=== PATIENT | male | born 1940 | race Caucasian/White ===

== ENCOUNTER 2021-03-11 14:42 | Inpatient (IN) ==
[2021-03-11] MEDS ORDERED: Isovue-370 500 ML BOTTLE IVP ONE (15:15)
[2021-03-11] MEDS ORDERED: Furosemide 40 MG/4 ML VIAL IVP ONE (15:25)
[2021-03-11 16:07] LABS: Basophils % 0.1 %; Hematocrit 35.2 % (37.5-50.1); Immature Granulocytes % 1.7 % (0-4); Lymphocytes # 0.8 K/mcL (0.6-4.6); Lymphocytes % 5.4 %; Mean Corpuscular HGB Conc 31.3 g/dL (31.6-35.5); Mean Corpuscular Hemoglobin 28.1 pg (28.0-33.3); Mean Platelet Volume 9.5 fL (9.4-12.4); Monocytes # 0.9 K/mcL (0.0-1.3); Neutrophils # 12.4 K/mcL (1.6-8.9); Platelet Count 248 K/mcL (140-400); Red Blood Count 3.91 M/mcL (4.19-5.50); Red Cell Distribution Width 15.2 % (11.5-14.5); Segmented Neutrophils % 86.8 %; White Blood Count 14.3 K/mcL (4.3-11.1)
[2021-03-11 16:25] LABS: Alanine Aminotransferase 23 Units/L (7-52); Albumin 3.8 g/dL (3.5-5.7); Albumin/Globulin Ratio 1.8 (1.1-2.2); Alkaline Phosphatase 59 Units/L (34-104); Aspartate Amino Transferase 19 Units/L (13-39); BUN/Creatinine Ratio 24 (6-26); Bilirubin,Total 0.6 mg/dL (0.3-1.0); Blood Urea Nitrogen 26 mg/dL (8-23); Carbon Dioxide 34 mEq/L (23-29); Chloride 99 mEq/L (98-107); Globulin 2.1 g/dL (2.4-3.5); Glucose 125 mg/dL (70-105); Magnesium 2.4 mg/dL (1.6-2.6); Osmolality,Calculated 298 (280-300); Potassium 4.1 mEq/L (3.5-5.1); Sodium 141 mEq/L (136-145); Total Protein 5.9 g/dL (6.4-8.9); Troponin I < 0.03 ng/mL (< 0.04); eGFR For African Americans > 60 (> 60); eGFR For Non-African Americans > 60 (> 60)
[2021-03-11 16:43] LABS: Influenza A PCR Negative (Negative); Influenza B PCR Negative (Negative); Resp. Syncytial Virus PCR Negative (Negative); SARS-CoV-2 by PCR (In House) Negative (Negative)
[2021-03-11 16:58] LABS: C-Reactive Protein < 5 mg/L (Less than 10)
[2021-03-11] MEDS ORDERED: cefTRIAXone 2,000 MG in Water for inj. (sterile) 20 ML IVP ONE (17:21)
[2021-03-11] MEDS ORDERED: Naloxone 0.4 MG/ML INJ IVP PRN ×2 (20:03→20:14)
[2021-03-11] MEDS ORDERED: Acetaminophen 325 MG TABLET PO PRN (20:14)
[2021-03-11] MEDS ORDERED: Ondansetron ODT 4 MG TAB.RAPDIS SL PRN (20:14)
[2021-03-11 21:40] LABS: Basophils % 0.3 %; Eosinophils % 0.1 %; Hematocrit 35.5 % (37.5-50.1); Hemoglobin 10.9 g/dL (12.9-16.9); Immature Granulocytes % 1.9 % (0-4); Lymphocytes # 1.5 K/mcL (0.6-4.6); Lymphocytes % 10.6 %; Mean Corpuscular HGB Conc 30.7 g/dL (31.6-35.5); Mean Corpuscular Hemoglobin 27.4 pg (28.0-33.3); Mean Corpuscular Volume 89.2 fL (83.0-100.0); Mean Platelet Volume 9.8 fL (9.4-12.4); Monocytes # 1.3 K/mcL (0.0-1.3); Monocytes % 9.1 %; Neutrophils # 10.8 K/mcL (1.6-8.9); Nucleated Red Blood Cells 0.1 /100 WBC (0); Platelet Count 248 K/mcL (140-400); Red Blood Count 3.98 M/mcL (4.19-5.50); Red Cell Distribution Width 15.2 % (11.5-14.5); White Blood Count 13.9 K/mcL (4.3-11.1)
[2021-03-11] MEDS: Melatonin 3 MG TABLET PO PRN (23:01)
[2021-03-11] MEDS: Budesonide/Formoterol 160/4.5 1 PUFF INH IH SCH (23:45)
[2021-03-11] MEDS: Ipratropium/Albuterol Neb 3 ML IH SCH ×2 (23:45→23:48)
[2021-03-12] MEDS: Ipratropium/Albuterol Neb 3 ML IH SCH ×6 (03:33→23:17)
[2021-03-12] MEDS: Budesonide/Formoterol 160/4.5 1 PUFF INH IH SCH ×2 (07:25→20:21)
[2021-03-12 08:12] LABS: BUN/Creatinine Ratio 26 (6-26); Blood Urea Nitrogen 27 mg/dL (8-23); Calcium 8.3 mg/dL (8.6-10.3); Carbon Dioxide 33 mEq/L (23-29); Chloride 100 mEq/L (98-107); Glucose 75 mg/dL (70-105); Magnesium 2.4 mg/dL (1.6-2.6); Osmolality,Calculated 296 (280-300); Potassium 3.1 mEq/L (3.5-5.1); Sodium 141 mEq/L (136-145); eGFR For African Americans > 60 (> 60); eGFR For Non-African Americans > 60 (> 60)
[2021-03-12] MEDS: Furosemide 20 MG/2 ML VIAL IVP SCH ×2 (08:35→17:05)
[2021-03-12] MEDS: Sacubitril/Valsartan 49/51 MG 1 TABLET PO SCH ×2 (08:36→21:27)
[2021-03-12] MEDS: Finasteride 5 MG TABLET PO SCH (08:36)
[2021-03-12] MEDS: Metoprolol XL (24 HR) Succ 50 MG TAB.ER.24H PO SCH (08:37)
[2021-03-12] MEDS: Aspirin Enteric Coated 81 MG Tablet PO SCH (08:37)
[2021-03-12] MEDS: cefTRIAXone 1,000 MG in 0.9 % Sodium Chloride Mini Bag 100 ML IVPB SCH (08:37)
[2021-03-12] MEDS: Cholecalciferol (D-3) 1,000 UNIT (25MCG) TABLET PO SCH (08:39)
[2021-03-12] MEDS ORDERED: Tiotropium 10 INH DOSE IH SCH (09:00)
[2021-03-12] MEDS ORDERED: Roflumilast [Daliresp] 500 MCG PO SCH (09:00)
[2021-03-12] MEDS ORDERED: *HR* GlyBURIDE 2.5 MG TABLET PO SCH (09:00)
[2021-03-12] MEDS ORDERED: predniSONE 20 MG TABLET PO SCH (09:00)
[2021-03-12] MEDS ORDERED: GuaiFENesin Liq 200 MG/10 ML UDC PO SCH (09:00)
[2021-03-12] MEDS ORDERED: *HR* Dextrose 50 % in Water (Syg) 50 ML SYRINGE IVP PRN (11:09)
[2021-03-12] MEDS ORDERED: D5% in Water 1,000 ML IVC PRN (11:09)
[2021-03-12] MEDS ORDERED: Dextrose Gel 15 GM/37.5 ML TUBE PO PRN ×2 (11:09)
[2021-03-12] MEDS ORDERED: Ipratropium Neb 0.5 MG NEBULIZER IH PRN (11:10)
[2021-03-12] MEDS: Insulin LISPRO 300 UNITS/3 ML VIAL SUBQ SCH ×3 (12:43→21:31)
[2021-03-12] MEDS: Doxycycline 100 MG in 0.9 % Sodium Chloride Mini Bag 100 ML IVPB SCH (12:45)
[2021-03-12] MEDS ORDERED: Perflutren Lipid Microsphere 1.3 ML in 0.9 % Sodium Chloride 8.7 ML IVP PRN (16:11)
[2021-03-12 17:43] LABS: Bilirubin,Urine Negative (Negative); Blood,Urine Small (Negative); Clarity,Urine Turbid (Clear); Color,Urine Light-Yellow (Yellow); Glucose,Urine (UA) Normal (Normal); Ketones,Urine Negative (Negative); Leukocyte Esterase,Urine Large (Negative); Mucus,Urine Few per lpf (None-Few); Nitrite,Urine Negative (Negative); Protein,Urine Trace mg/dL (Neg-Trace); Specific Gravity,Urine 1.026 (1.010-1.025); Squamous Epithelial Cell,Urine Few per hpf (None-Few); Urobilinogen,Urine Normal (Normal); WBC,Urine TNTC per hpf (0-3)
[2021-03-13] MEDS: Doxycycline 100 MG in 0.9 % Sodium Chloride Mini Bag 100 ML IVPB SCH ×3 (00:24→23:18)
[2021-03-13] MEDS: Ipratropium/Albuterol Neb 3 ML IH SCH ×6 (03:44→23:06)
[2021-03-13 07:02] LABS: Estimated Average Glucose 148 mg/dl; Hemoglobin A1C 6.8 %
[2021-03-13 07:03] LABS: Basophils % 0.1 %; Eosinophils # 0.1 K/mcL (0.0-0.6); Eosinophils % 0.6 %; Hematocrit 30.8 % (37.5-50.1); Hemoglobin 9.4 g/dL (12.9-16.9); Lymphocytes # 1.3 K/mcL (0.6-4.6); Lymphocytes % 12.1 %; Mean Corpuscular HGB Conc 30.5 g/dL (31.6-35.5); Mean Corpuscular Hemoglobin 27.7 pg (28.0-33.3); Mean Corpuscular Volume 90.9 fL (83.0-100.0); Mean Platelet Volume 9.5 fL (9.4-12.4); Monocytes % 9.2 %; Neutrophils # 8.4 K/mcL (1.6-8.9); Platelet Count 201 K/mcL (140-400); Red Blood Count 3.39 M/mcL (4.19-5.50)
[2021-03-13 07:22] LABS: BUN/Creatinine Ratio 24 (6-26); Blood Urea Nitrogen 24 mg/dL (8-23); Calcium 8.5 mg/dL (8.6-10.3); Carbon Dioxide 33 mEq/L (23-29); Chloride 102 mEq/L (98-107); Glucose 84 mg/dL (70-105); Magnesium 2.3 mg/dL (1.6-2.6); Osmolality,Calculated 293 (280-300); Potassium 3.6 mEq/L (3.5-5.1); Sodium 140 mEq/L (136-145); eGFR For African Americans > 60 (> 60); eGFR For Non-African Americans > 60 (> 60)
[2021-03-13] MEDS: Insulin LISPRO 300 UNITS/3 ML VIAL SUBQ SCH ×4 (11:11→20:19)
[2021-03-13] MEDS: Finasteride 5 MG TABLET PO SCH (11:22)
[2021-03-13] MEDS: Metoprolol XL (24 HR) Succ 50 MG TAB.ER.24H PO SCH (11:23)
[2021-03-13] MEDS: Aspirin Enteric Coated 81 MG Tablet PO SCH (11:23)
[2021-03-13] MEDS: Furosemide 20 MG/2 ML VIAL IVP SCH (11:24)
[2021-03-13] MEDS: predniSONE 20 MG TABLET PO SCH (11:24)
[2021-03-13] MEDS: cefTRIAXone 1,000 MG in 0.9 % Sodium Chloride Mini Bag 100 ML IVPB SCH (11:25)
[2021-03-13] MEDS: Budesonide/Formoterol 160/4.5 1 PUFF INH IH SCH ×2 (11:46→20:31)
[2021-03-13] MEDS ORDERED: Acetaminophen 325 MG TABLET PO PRN (15:36)
[2021-03-13] MEDS ORDERED: *HR* Heparin 5,000 UNIT/ML VIAL IVP ONE (18:26)
[2021-03-13] MEDS ORDERED: *HR* Heparin 5,000 UNIT/ML VIAL IVP PRN ×2 (18:26)
[2021-03-13] MEDS ORDERED: Heparin 25,000UNIT/250ML 1/2NS 25,000 UNIT/250 ML IV.SOLN IVC SCH (18:30)
[2021-03-13 19:08] LABS: Hemoglobin 10.4 g/dL (12.9-16.9); Mean Corpuscular HGB Conc 29.7 g/dL (31.6-35.5); Mean Corpuscular Hemoglobin 27.1 pg (28.0-33.3); Mean Corpuscular Volume 91.1 fL (83.0-100.0); Mean Platelet Volume 9.7 fL (9.4-12.4); Platelet Count 222 K/mcL (140-400); Red Blood Count 3.84 M/mcL (4.19-5.50)
[2021-03-13 19:15] LABS: Heparin anti-factor XA UFH < 0.04 IU/mL (0.30-0.70); Prothrombin Time 11.5 Seconds (9.4-12.1)
[2021-03-13] MEDS: Furosemide 40 MG/4 ML VIAL IVP SCH (20:18)
[2021-03-13] MEDS: Sacubitril/Valsartan 49/51 MG 1 TABLET PO SCH (20:18)
[2021-03-14] MEDS: Ipratropium/Albuterol Neb 3 ML IH SCH ×5 (03:37→19:58)
[2021-03-14 06:41] LABS: Basophils % 0.2 %; Eosinophils % 0.1 %; Hemoglobin 9.6 g/dL (12.9-16.9); Immature Granulocytes % 2.1 % (0-4); Lymphocytes # 0.9 K/mcL (0.6-4.6); Lymphocytes % 7.6 %; Mean Corpuscular Hemoglobin 27.4 pg (28.0-33.3); Mean Corpuscular Volume 91.4 fL (83.0-100.0); Mean Platelet Volume 9.9 fL (9.4-12.4); Monocytes # 0.8 K/mcL (0.0-1.3); Monocytes % 7.1 %; Neutrophils # 9.7 K/mcL (1.6-8.9); Nucleated Red Blood Cells 0.2 /100 WBC (0); Platelet Count 224 K/mcL (140-400); Segmented Neutrophils % 82.9 %; White Blood Count 11.7 K/mcL (4.3-11.1)
[2021-03-14] MEDS ORDERED: *HR* Enoxaparin 40 MG/0.4 ML SYRINGE SQ SCH (07:00)
[2021-03-14 07:49] LABS: Alanine Aminotransferase 18 Units/L (7-52); Albumin 3.2 g/dL (3.5-5.7); Albumin/Globulin Ratio 1.7 (1.1-2.2); Alkaline Phosphatase 52 Units/L (34-104); Aspartate Amino Transferase 16 Units/L (13-39); BUN/Creatinine Ratio 24 (6-26); Bilirubin,Direct 0.1 mg/dL (0.0-0.2); Bilirubin,Indirect 0.4 mg/dL (0.0-1.0); Bilirubin,Total 0.5 mg/dL (0.3-1.0); Blood Urea Nitrogen 21 mg/dL (8-23); Calcium 8.3 mg/dL (8.6-10.3); Carbon Dioxide 31 mEq/L (23-29); Chloride 102 mEq/L (98-107); Globulin 1.9 g/dL (2.4-3.5); Glucose 144 mg/dL (70-105); Magnesium 2.3 mg/dL (1.6-2.6); Osmolality,Calculated 298 (280-300); Potassium 3.8 mEq/L (3.5-5.1); Sodium 141 mEq/L (136-145); Thyroid Stimulating Hormone 0.318 mcIU/mL (0.340-5.600); Total Protein 5.1 g/dL (6.4-8.9); eGFR For African Americans > 60 (> 60); eGFR For Non-African Americans > 60 (> 60)
[2021-03-14 07:59] LABS: Folate 10.8 ng/mL (3.0-16.0)
[2021-03-14] MEDS: Budesonide/Formoterol 160/4.5 1 PUFF INH IH SCH ×2 (08:09→19:58)
[2021-03-14 08:17] LABS: Ferritin 55 ng/mL (20-250); Iron 32 mcg/dL (65-175)
[2021-03-14] MEDS ORDERED: Iron Sucrose Complex 250 MG in 0.9 % Sodium Chloride 250 ML IVPB ONE ×2 (09:33→20:45)
[2021-03-14] MEDS ORDERED: Cyanocobalamin (B-12) 1,000 MCG/ML VIAL SQ ONE (09:34)
[2021-03-14] MEDS: Insulin LISPRO 300 UNITS/3 ML VIAL SUBQ SCH ×4 (10:32→20:38)
[2021-03-14] MEDS: Metoprolol XL (24 HR) Succ 50 MG TAB.ER.24H PO SCH (12:08)
[2021-03-14] MEDS: Sacubitril/Valsartan 49/51 MG 1 TABLET PO SCH ×2 (12:09→20:36)
[2021-03-14] MEDS: Furosemide 40 MG/4 ML VIAL IVP SCH ×2 (12:10→20:37)
[2021-03-14] MEDS: Finasteride 5 MG TABLET PO SCH (12:10)
[2021-03-14] MEDS: Aspirin Enteric Coated 81 MG Tablet PO SCH (12:10)
[2021-03-14] MEDS: predniSONE 20 MG TABLET PO SCH (12:11)
[2021-03-14] MEDS: Doxycycline 100 MG in 0.9 % Sodium Chloride Mini Bag 100 ML IVPB SCH (12:11)
[2021-03-14] MEDS: cefTRIAXone 1,000 MG in 0.9 % Sodium Chloride Mini Bag 100 ML IVPB SCH (12:11)
[2021-03-14] MEDS ORDERED: Heparin 1,000 UNITS/500 mL 500 ML ONE (12:50)
[2021-03-14] MEDS ORDERED: *HR* Midazolam HCl 2 MG/2 ML VIAL ONE (13:06)
[2021-03-14] MEDS ORDERED: *HR* FentaNYL (PF) 100 MCG/2 ML VIAL ONE (13:11)
[2021-03-14] MEDS: Melatonin 3 MG TABLET PO PRN (21:53)
[2021-03-14] MEDS: Acetaminophen 325 MG TABLET PO PRN (22:38)
[2021-03-15] MEDS: Ipratropium/Albuterol Neb 3 ML IH SCH ×6 (00:26→20:38)
[2021-03-15] MEDS: Doxycycline 100 MG in 0.9 % Sodium Chloride Mini Bag 100 ML IVPB SCH (00:26)
[2021-03-15] MEDS: Acetaminophen 325 MG TABLET PO PRN ×2 (05:07→21:56)
[2021-03-15 05:11] LABS: Basophils % 0.3 %; Hematocrit 30.9 % (37.5-50.1); Immature Granulocytes % 1.3 % (0-4); Lymphocytes # 0.6 K/mcL (0.6-4.6); Lymphocytes % 5.3 %; Mean Corpuscular HGB Conc 29.1 g/dL (31.6-35.5); Mean Corpuscular Hemoglobin 26.9 pg (28.0-33.3); Mean Corpuscular Volume 92.5 fL (83.0-100.0); Mean Platelet Volume 9.7 fL (9.4-12.4); Monocytes # 0.6 K/mcL (0.0-1.3); Monocytes % 5.7 %; Neutrophils # 9.9 K/mcL (1.6-8.9); Platelet Count 198 K/mcL (140-400); Red Blood Count 3.34 M/mcL (4.19-5.50); Red Cell Distribution Width 14.8 % (11.5-14.5); Segmented Neutrophils % 87.4 %; White Blood Count 11.3 K/mcL (4.3-11.1)
[2021-03-15 05:24] LABS: BUN/Creatinine Ratio 28 (6-26); Blood Urea Nitrogen 24 mg/dL (8-23); Calcium 7.9 mg/dL (8.6-10.3); Carbon Dioxide 29 mEq/L (23-29); Chloride 103 mEq/L (98-107); Glucose 170 mg/dL (70-105); Magnesium 2.1 mg/dL (1.6-2.6); Osmolality,Calculated 296 (280-300); Potassium 3.8 mEq/L (3.5-5.1); Sodium 139 mEq/L (136-145); eGFR For African Americans > 60 (> 60); eGFR For Non-African Americans > 60 (> 60)
[2021-03-15 05:40] LABS: Thyroid Stimulating Hormone 0.291 mcIU/mL (0.340-5.600)
[2021-03-15 05:42] LABS: Triiodothyronine (T3) Free 2.42 pg/mL (2.50-3.90)
[2021-03-15] MEDS: Budesonide/Formoterol 160/4.5 1 PUFF INH IH SCH (07:45)
[2021-03-15] MEDS ORDERED: *HR* LORazepam 2 MG/ML VIAL IVP ONE (11:26)
[2021-03-15] MEDS: predniSONE 20 MG TABLET PO SCH (11:29)
[2021-03-15] MEDS: Furosemide 40 MG/4 ML VIAL IVP SCH (11:29)
[2021-03-15] MEDS: cefTRIAXone 1,000 MG in 0.9 % Sodium Chloride Mini Bag 100 ML IVPB SCH (11:30)
[2021-03-15] MEDS: Insulin LISPRO 300 UNITS/3 ML VIAL SUBQ SCH ×3 (11:30→20:49)
[2021-03-15] MEDS ORDERED: Isovue-370 500 ML BOTTLE IVP ONE (11:43)
[2021-03-15] MEDS: Metoprolol XL (24 HR) Succ 50 MG TAB.ER.24H PO SCH (11:45)
[2021-03-15] MEDS: Sacubitril/Valsartan 49/51 MG 1 TABLET PO SCH ×2 (11:46→20:48)
[2021-03-15] MEDS: Finasteride 5 MG TABLET PO SCH (11:47)
[2021-03-15] MEDS: Aspirin Enteric Coated 81 MG Tablet PO SCH (11:51)
[2021-03-15] MEDS: Furosemide 40 MG TABLET PO SCH (17:23)
[2021-03-15] MEDS: methylPREDNISolone 125 MG/2 ML VIAL IVP SCH ×2 (17:24→23:10)
[2021-03-15] MEDS: Melatonin 3 MG TABLET PO PRN (21:56)
[2021-03-16] MEDS: Ipratropium/Albuterol Neb 3 ML IH SCH ×7 (00:11→23:50)
[2021-03-16] MEDS: Budesonide Neb 0.5 MG/2 ML IH SCH ×3 (00:12→20:55)
[2021-03-16 05:26] LABS: Basophils % 0.2 %; Hematocrit 29.5 % (37.5-50.1); Hemoglobin 9.2 g/dL (12.9-16.9); Immature Granulocytes % 2.8 % (0-4); Lymphocytes # 0.4 K/mcL (0.6-4.6); Lymphocytes % 4.5 %; Mean Corpuscular HGB Conc 31.2 g/dL (31.6-35.5); Mean Corpuscular Volume 89.9 fL (83.0-100.0); Mean Platelet Volume 9.9 fL (9.4-12.4); Monocytes # 0.2 K/mcL (0.0-1.3); Monocytes % 1.7 %; Neutrophils # 8.9 K/mcL (1.6-8.9); Platelet Count 210 K/mcL (140-400); Red Blood Count 3.28 M/mcL (4.19-5.50); Red Cell Distribution Width 14.6 % (11.5-14.5); Segmented Neutrophils % 90.8 %; White Blood Count 9.8 K/mcL (4.3-11.1)
[2021-03-16 05:43] LABS: BUN/Creatinine Ratio 26 (6-26); Blood Urea Nitrogen 21 mg/dL (8-23); Calcium 8.1 mg/dL (8.6-10.3); Carbon Dioxide 30 mEq/L (23-29); Chloride 102 mEq/L (98-107); Glucose 199 mg/dL (70-105); Magnesium 2.1 mg/dL (1.6-2.6); Osmolality,Calculated 297 (280-300); Potassium 3.9 mEq/L (3.5-5.1); Sodium 139 mEq/L (136-145); eGFR For African Americans > 60 (> 60); eGFR For Non-African Americans > 60 (> 60)
[2021-03-16] MEDS: Finasteride 5 MG TABLET PO SCH (08:20)
[2021-03-16] MEDS: Sacubitril/Valsartan 49/51 MG 1 TABLET PO SCH ×2 (08:20→20:43)
[2021-03-16] MEDS: Furosemide 40 MG TABLET PO SCH ×2 (08:21→16:30)
[2021-03-16] MEDS: Aspirin Enteric Coated 81 MG Tablet PO SCH (08:21)
[2021-03-16] MEDS: methylPREDNISolone 125 MG/2 ML VIAL IVP SCH ×2 (08:23→16:29)
[2021-03-16] MEDS: Metoprolol XL (24 HR) Succ 50 MG TAB.ER.24H PO SCH (08:24)
[2021-03-16] MEDS: Insulin LISPRO 300 UNITS/3 ML VIAL SUBQ SCH ×4 (08:26→20:44)
[2021-03-16] MEDS ORDERED: Ketorolac 30 MG/ML VIAL IVP ONE (09:04)
[2021-03-16] MEDS ORDERED: *HR* LORazepam 2 MG/ML VIAL IVP ONE (09:04)
[2021-03-16] MEDS: Cholecalciferol (D-3) 1,000 UNIT (25MCG) TABLET PO SCH (09:33)
[2021-03-16] MEDS: Isovue-370 500 ML BOTTLE IVP ONE ×2 (11:04→11:05)
[2021-03-16] MEDS ORDERED: *HR* Heparin 5,000 UNIT/ML VIAL IVP PRN ×2 (15:09)
[2021-03-16] MEDS ORDERED: *HR* Heparin 5,000 UNIT/ML VIAL IVP ONE (15:09)
[2021-03-16] MEDS: Heparin 25,000UNIT/250ML 1/2NS 25,000 UNIT/250 ML IV.SOLN IVC SCH (16:43)
[2021-03-16 18:24] LABS: INR 1.1
[2021-03-16 18:29] LABS: Heparin anti-factor XA UFH 1.5 IU/mL (0.30-0.70)
[2021-03-16] MEDS: Acetaminophen 325 MG TABLET PO PRN (23:05)
[2021-03-16] MEDS: Melatonin 3 MG TABLET PO PRN (23:05)
[2021-03-17] MEDS: Ipratropium/Albuterol Neb 3 ML IH SCH ×6 (04:01→23:59)
[2021-03-17] MEDS: Acetaminophen 325 MG TABLET PO PRN ×2 (05:32→22:28)
[2021-03-17 07:04] LABS: Basophils % 0.2 %; Eosinophils % 0.1 %; Hematocrit 33.3 % (37.5-50.1); Hemoglobin 10.1 g/dL (12.9-16.9); Immature Granulocytes % 4.8 % (0-4); Lymphocytes # 0.8 K/mcL (0.6-4.6); Lymphocytes % 4.7 %; Mean Corpuscular HGB Conc 30.3 g/dL (31.6-35.5); Mean Corpuscular Hemoglobin 27.2 pg (28.0-33.3); Mean Corpuscular Volume 89.8 fL (83.0-100.0); Mean Platelet Volume 9.8 fL (9.4-12.4); Monocytes # 1.2 K/mcL (0.0-1.3); Platelet Count 231 K/mcL (140-400); Red Blood Count 3.71 M/mcL (4.19-5.50); Red Cell Distribution Width 14.9 % (11.5-14.5); Segmented Neutrophils % 83.2 %
[2021-03-17 07:06] LABS: White Blood Count 16.8 K/mcL (4.3-11.1)
[2021-03-17 07:22] LABS: BUN/Creatinine Ratio 31 (6-26); Blood Urea Nitrogen 29 mg/dL (8-23); Calcium 8.7 mg/dL (8.6-10.3); Carbon Dioxide 30 mEq/L (23-29); Chloride 100 mEq/L (98-107); Glucose 141 mg/dL (70-105); Magnesium 2.3 mg/dL (1.6-2.6); Osmolality,Calculated 294 (280-300); Potassium 3.9 mEq/L (3.5-5.1); Sodium 138 mEq/L (136-145); eGFR For African Americans > 60 (> 60); eGFR For Non-African Americans > 60 (> 60)
[2021-03-17] MEDS: Insulin LISPRO 300 UNITS/3 ML VIAL SUBQ SCH ×4 (08:27→20:35)
[2021-03-17] MEDS: Finasteride 5 MG TABLET PO SCH (08:31)
[2021-03-17] MEDS: Metoprolol XL (24 HR) Succ 50 MG TAB.ER.24H PO SCH (08:31)
[2021-03-17] MEDS: Aspirin Enteric Coated 81 MG Tablet PO SCH (08:31)
[2021-03-17] MEDS: Sacubitril/Valsartan 49/51 MG 1 TABLET PO SCH ×2 (08:31→20:35)
[2021-03-17] MEDS: predniSONE 20 MG TABLET PO SCH (08:32)
[2021-03-17] MEDS: Furosemide 40 MG TABLET PO SCH ×2 (08:32→18:11)
[2021-03-17 10:19] LABS: % Iron Saturation 10 % (20-55); Transferrin 220 mg/dL (200-400)
[2021-03-17] MEDS ORDERED: Ketorolac 30 MG/ML VIAL IVP ONE (11:45)
[2021-03-17] MEDS: Budesonide Neb 0.5 MG/2 ML IH SCH ×2 (11:53→20:32)
[2021-03-17] MEDS: Heparin 25,000UNIT/250ML 1/2NS 25,000 UNIT/250 ML IV.SOLN IVC SCH (16:48)
[2021-03-17] MEDS: Melatonin 3 MG TABLET PO PRN (22:29)
[2021-03-18 02:46] LABS: Basophils # 0.1 K/mcL (0.0-0.2); Basophils % 0.4 %; Hematocrit 33.8 % (37.5-50.1); Hemoglobin 10.2 g/dL (12.9-16.9); Immature Granulocytes % 4.9 % (0-4); Lymphocytes % 7.4 %; Mean Corpuscular HGB Conc 30.2 g/dL (31.6-35.5); Mean Corpuscular Hemoglobin 27.3 pg (28.0-33.3); Mean Corpuscular Volume 90.4 fL (83.0-100.0); Mean Platelet Volume 10.2 fL (9.4-12.4); Monocytes # 1.3 K/mcL (0.0-1.3); Monocytes % 8.9 %; Platelet Count 242 K/mcL (140-400); Red Blood Count 3.74 M/mcL (4.19-5.50); Segmented Neutrophils % 78.4 %
[2021-03-18 02:58] LABS: BUN/Creatinine Ratio 29 (6-26); Blood Urea Nitrogen 35 mg/dL (8-23); Calcium 8.8 mg/dL (8.6-10.3); Carbon Dioxide 28 mEq/L (23-29); Chloride 99 mEq/L (98-107); Glucose 122 mg/dL (70-105); Magnesium 2.3 mg/dL (1.6-2.6); Osmolality,Calculated 299 (280-300); Potassium 3.8 mEq/L (3.5-5.1); Sodium 140 mEq/L (136-145); eGFR For African Americans > 60 (> 60); eGFR For Non-African Americans 57 (> 60)
[2021-03-18] MEDS: Ipratropium/Albuterol Neb 3 ML IH SCH ×6 (04:17→23:19)
[2021-03-18] MEDS: Insulin LISPRO 300 UNITS/3 ML VIAL SUBQ SCH ×4 (07:37→20:43)
[2021-03-18] MEDS: Budesonide Neb 0.5 MG/2 ML IH SCH ×2 (07:42→20:25)
[2021-03-18] MEDS: Finasteride 5 MG TABLET PO SCH (09:13)
[2021-03-18] MEDS: Aspirin Enteric Coated 81 MG Tablet PO SCH (09:13)
[2021-03-18] MEDS: Metoprolol XL (24 HR) Succ 50 MG TAB.ER.24H PO SCH (09:13)
[2021-03-18] MEDS: Furosemide 40 MG TABLET PO SCH ×2 (09:13→16:53)
[2021-03-18] MEDS: Sacubitril/Valsartan 49/51 MG 1 TABLET PO SCH ×2 (09:13→20:42)
[2021-03-18] MEDS: predniSONE 20 MG TABLET PO SCH (09:14)
[2021-03-18] MEDS: Pantoprazole 40 MG VIAL IVP SCH (09:14)
[2021-03-18] MEDS: Sennosides/Docusate Sodium TABLET PO SCH ×2 (11:30→20:42)
[2021-03-18] MEDS: polyethylene glycoL 3350 17 GM POWD.PACK PO SCH (11:30)
[2021-03-18] MEDS: Heparin 25,000UNIT/250ML 1/2NS 25,000 UNIT/250 ML IV.SOLN IVC SCH (19:08)
[2021-03-19] MEDS: Ipratropium/Albuterol Neb 3 ML IH SCH ×6 (04:13→23:18)
[2021-03-19 06:41] LABS: Basophils # 0.1 K/mcL (0.0-0.2); Basophils % 0.5 %; Eosinophils % 0.1 %; Hematocrit 35.8 % (37.5-50.1); Hemoglobin 10.6 g/dL (12.9-16.9); Immature Granulocytes % 4.7 % (0-4); Lymphocytes # 1.1 K/mcL (0.6-4.6); Lymphocytes % 7.6 %; Mean Corpuscular HGB Conc 29.6 g/dL (31.6-35.5); Mean Corpuscular Hemoglobin 26.9 pg (28.0-33.3); Mean Corpuscular Volume 90.9 fL (83.0-100.0); Mean Platelet Volume 10.8 fL (9.4-12.4); Monocytes # 1.2 K/mcL (0.0-1.3); Monocytes % 8.7 %; Neutrophils # 11.2 K/mcL (1.6-8.9); Platelet Count 183 K/mcL (140-400); Red Blood Count 3.94 M/mcL (4.19-5.50); Red Cell Distribution Width 15.2 % (11.5-14.5); Segmented Neutrophils % 78.4 %; White Blood Count 14.3 K/mcL (4.3-11.1)
[2021-03-19 07:17] LABS: BUN/Creatinine Ratio 31 (6-26); Blood Urea Nitrogen 29 mg/dL (8-23); Calcium 8.6 mg/dL (8.6-10.3); Carbon Dioxide 27 mEq/L (23-29); Chloride 102 mEq/L (98-107); Glucose 92 mg/dL (70-105); Magnesium 2.3 mg/dL (1.6-2.6); Osmolality,Calculated 293 (280-300); Potassium 3.9 mEq/L (3.5-5.1); Sodium 139 mEq/L (136-145); eGFR For African Americans > 60 (> 60); eGFR For Non-African Americans > 60 (> 60)
[2021-03-19] MEDS: polyethylene glycoL 3350 17 GM POWD.PACK PO SCH (09:01)
[2021-03-19] MEDS: Pantoprazole 40 MG VIAL IVP SCH (09:01)
[2021-03-19] MEDS: Sacubitril/Valsartan 49/51 MG 1 TABLET PO SCH ×2 (09:02→20:17)
[2021-03-19] MEDS: Sennosides/Docusate Sodium TABLET PO SCH ×2 (09:08→20:17)
[2021-03-19] MEDS: Metoprolol XL (24 HR) Succ 50 MG TAB.ER.24H PO SCH (09:09)
[2021-03-19] MEDS: predniSONE 20 MG TABLET PO SCH (09:09)
[2021-03-19] MEDS: Aspirin Enteric Coated 81 MG Tablet PO SCH (09:10)
[2021-03-19] MEDS: Furosemide 40 MG TABLET PO SCH ×2 (09:10→17:27)
[2021-03-19] MEDS: Finasteride 5 MG TABLET PO SCH (09:11)
[2021-03-19] MEDS: Insulin LISPRO 300 UNITS/3 ML VIAL SUBQ SCH ×4 (09:16→20:15)
[2021-03-19] MEDS: Cholecalciferol (D-3) 1,000 UNIT (25MCG) TABLET PO SCH (09:25)
[2021-03-19] MEDS: Budesonide Neb 0.5 MG/2 ML IH SCH ×2 (10:51→19:25)
[2021-03-19] MEDS: Heparin 25,000UNIT/250ML 1/2NS 25,000 UNIT/250 ML IV.SOLN IVC SCH ×2 (12:41→20:20)
[2021-03-19] MEDS ORDERED: *HR* Warfarin 4 MG TABLET PO ONE (18:00)
[2021-03-19] MEDS ORDERED: Warfarin perPT PO PRN (18:00)
[2021-03-20 02:54] LABS: Hematocrit 33.1 % (37.5-50.1); Hemoglobin 10.3 g/dL (12.9-16.9); Mean Corpuscular HGB Conc 31.1 g/dL (31.6-35.5); Mean Corpuscular Hemoglobin 28.1 pg (28.0-33.3); Mean Corpuscular Volume 90.4 fL (83.0-100.0); Mean Platelet Volume 10.2 fL (9.4-12.4); Platelet Count 241 K/mcL (140-400); Red Blood Count 3.66 M/mcL (4.19-5.50); Red Cell Distribution Width 15.2 % (11.5-14.5); White Blood Count 15.3 K/mcL (4.3-11.1)
[2021-03-20 02:56] LABS: Blood Urea Nitrogen 26 mg/dL (8-23); Calcium 8.5 mg/dL (8.6-10.3); Carbon Dioxide 27 mEq/L (23-29); Chloride 102 mEq/L (98-107); Glucose 154 mg/dL (70-105); Magnesium 2.3 mg/dL (1.6-2.6); Osmolality,Calculated 296 (280-300); Potassium 4.1 mEq/L (3.5-5.1); Sodium 139 mEq/L (136-145)
[2021-03-20 03:00] LABS: Prothrombin Time 11.5 Seconds (9.4-12.1)
[2021-03-20] MEDS: Ipratropium/Albuterol Neb 3 ML IH SCH ×6 (03:29→23:22)
[2021-03-20 03:41] LABS: BUN/Creatinine Ratio 28 (6-26); eGFR For African Americans > 60 (> 60); eGFR For Non-African Americans > 60 (> 60)
[2021-03-20 03:46] LABS: Anisocytosis 1+ (Not Present); Lymphocytes # 0.6 K/mcL (0.6-4.6); Monocytes # 0.6 K/mcL (0.0-1.3); Neutrophils # 13.2 K/mcL (1.6-8.9)
[2021-03-20 03:47] LABS: Platelet Estimate Normal (Normal)
[2021-03-20] MEDS: Budesonide Neb 0.5 MG/2 ML IH SCH ×2 (07:21→20:33)
[2021-03-20] MEDS: Insulin LISPRO 300 UNITS/3 ML VIAL SUBQ SCH ×4 (08:38→22:05)
[2021-03-20] MEDS: Pantoprazole 40 MG VIAL IVP SCH (08:53)
[2021-03-20] MEDS: polyethylene glycoL 3350 17 GM POWD.PACK PO SCH (08:53)
[2021-03-20] MEDS: Metoprolol XL (24 HR) Succ 50 MG TAB.ER.24H PO SCH (08:54)
[2021-03-20] MEDS: Sennosides/Docusate Sodium TABLET PO SCH ×2 (08:54→20:05)
[2021-03-20] MEDS: predniSONE 20 MG TABLET PO SCH (08:54)
[2021-03-20] MEDS: Aspirin Enteric Coated 81 MG Tablet PO SCH (08:54)
[2021-03-20] MEDS: Sacubitril/Valsartan 49/51 MG 1 TABLET PO SCH ×2 (08:55→20:04)
[2021-03-20] MEDS: Finasteride 5 MG TABLET PO SCH (08:55)
[2021-03-20] MEDS: Furosemide 40 MG TABLET PO SCH ×2 (08:55→17:52)
[2021-03-20] MEDS: Heparin 25,000UNIT/250ML 1/2NS 25,000 UNIT/250 ML IV.SOLN IVC SCH (17:12)
[2021-03-20] MEDS: *HR* Enoxaparin 100 MG/ML SYRINGE SQ SCH (17:54)
[2021-03-20] MEDS ORDERED: *HR* Warfarin 3 MG TABLET PO ONE (18:00)
[2021-03-21 01:30] LABS: Basophils # 0.1 K/mcL (0.0-0.2); Basophils % 0.4 %; Eosinophils % 0.1 %; Hematocrit 32.4 % (37.5-50.1); Hemoglobin 10.1 g/dL (12.9-16.9); Immature Granulocytes % 4.3 % (0-4); Lymphocytes # 1.1 K/mcL (0.6-4.6); Lymphocytes % 8.6 %; Mean Corpuscular HGB Conc 31.2 g/dL (31.6-35.5); Mean Corpuscular Hemoglobin 28.2 pg (28.0-33.3); Mean Corpuscular Volume 90.5 fL (83.0-100.0); Mean Platelet Volume 10.1 fL (9.4-12.4); Monocytes % 7.6 %; Neutrophils # 9.8 K/mcL (1.6-8.9); Platelet Count 203 K/mcL (140-400); Red Blood Count 3.58 M/mcL (4.19-5.50); Red Cell Distribution Width 15.3 % (11.5-14.5); White Blood Count 12.4 K/mcL (4.3-11.1)
[2021-03-21 01:49] LABS: INR 1.1; Prothrombin Time 12.5 Seconds (9.4-12.1)
[2021-03-21 02:19] LABS: BUN/Creatinine Ratio 25 (6-26); Blood Urea Nitrogen 23 mg/dL (8-23); Calcium 8.2 mg/dL (8.6-10.3); Carbon Dioxide 26 mEq/L (23-29); Chloride 103 mEq/L (98-107); Glucose 175 mg/dL (70-105); Magnesium 2.2 mg/dL (1.6-2.6); Osmolality,Calculated 298 (280-300); Sodium 140 mEq/L (136-145); eGFR For African Americans > 60 (> 60); eGFR For Non-African Americans > 60 (> 60)
[2021-03-21] MEDS: Ipratropium/Albuterol Neb 3 ML IH SCH ×6 (04:31→23:42)
[2021-03-21] MEDS: *HR* Enoxaparin 100 MG/ML SYRINGE SQ SCH ×2 (05:28→17:09)
[2021-03-21] MEDS: Budesonide Neb 0.5 MG/2 ML IH SCH ×2 (07:43→20:58)
[2021-03-21] MEDS: predniSONE 20 MG TABLET PO SCH (08:15)
[2021-03-21] MEDS: Metoprolol XL (24 HR) Succ 50 MG TAB.ER.24H PO SCH (08:15)
[2021-03-21] MEDS: Aspirin Enteric Coated 81 MG Tablet PO SCH (08:16)
[2021-03-21] MEDS: Finasteride 5 MG TABLET PO SCH (08:16)
[2021-03-21] MEDS: Sacubitril/Valsartan 49/51 MG 1 TABLET PO SCH ×2 (08:16→20:18)
[2021-03-21] MEDS: Insulin LISPRO 300 UNITS/3 ML VIAL SUBQ SCH ×4 (08:17→20:18)
[2021-03-21] MEDS: Furosemide 40 MG TABLET PO SCH ×2 (08:17→17:10)
[2021-03-21] MEDS: polyethylene glycoL 3350 17 GM POWD.PACK PO SCH (08:20)
[2021-03-21] MEDS ORDERED: *HR* Warfarin 5 MG TABLET PO ONE (18:00)
[2021-03-22 01:20] LABS: INR 1.3; Prothrombin Time 14.4 Seconds (9.4-12.1)
[2021-03-22] MEDS: Melatonin 3 MG TABLET PO PRN (02:49)
[2021-03-22] MEDS: Ipratropium/Albuterol Neb 3 ML IH SCH ×5 (04:55→20:27)
[2021-03-22] MEDS: *HR* Enoxaparin 100 MG/ML SYRINGE SQ SCH ×2 (06:50→18:16)
[2021-03-22] MEDS: Budesonide Neb 0.5 MG/2 ML IH SCH ×2 (07:26→20:27)
[2021-03-22] MEDS: Sacubitril/Valsartan 49/51 MG 1 TABLET PO SCH (09:13)
[2021-03-22] MEDS: Finasteride 5 MG TABLET PO SCH (09:14)
[2021-03-22] MEDS: predniSONE 20 MG TABLET PO SCH (09:15)
[2021-03-22] MEDS: Aspirin Enteric Coated 81 MG Tablet PO SCH (09:15)
[2021-03-22] MEDS: Furosemide 40 MG TABLET PO SCH ×2 (09:15→16:04)
[2021-03-22] MEDS: Metoprolol XL (24 HR) Succ 50 MG TAB.ER.24H PO SCH (09:16)
[2021-03-22] MEDS: polyethylene glycoL 3350 17 GM POWD.PACK PO SCH (09:18)
[2021-03-22] MEDS: Insulin LISPRO 300 UNITS/3 ML VIAL SUBQ SCH ×3 (09:26→17:11)
[2021-03-22] MEDS: Acetaminophen 325 MG TABLET PO PRN (12:16)
[2021-03-22 14:30] LABS: Adenovirus Not Detected (Not Detect); Bordetella Pertussis Not Detected (Not Detect); Chlamydophila pneumoniae Not Detected (Not Detect); Coronavirus 229E Not Detected (Not Detect); Coronavirus HKU1 Not Detected (Not Detect); Coronavirus NL63 Not Detected (Not Detect); Coronavirus OC43 Not Detected (Not Detect); Human Metapneumovirus Not Detected (Not Detect); Human Rhinovirus/Enterovirus Not Detected (Not Detect); Influenza A Subtype 2009 H1 Not Detected (Not Detect); Influenza B Not Detected (Not Detect); Mycoplasma pneumoniae Not Detected (Not Detect); Parainfluenza Virus 1 Not Detected (Not Detect); Parainfluenza Virus 2 Not Detected (Not Detect); Parainfluenza Virus 3 Not Detected (Not Detect); Parainfluenza Virus 4 Not Detected (Not Detect); Respiratory Syncytial Virus Not Detected (Not Detect); SARS-CoV-2 Not Detected (Not Detect)
[2021-03-22] MEDS ORDERED: *HR* Warfarin 3 MG TABLET PO ONE (18:00)
[2021-03-22 20:02] VITALS: BP 110/56; PULSE 85; TEMP 97.8
[2021-03-22 20:29] VITALS: O2SAT 98
== END 2021-03-22 21:28 | DRG 698 ==
LOC: 3ANU 14:42 → EMEROOARM 14:42 → SUATTDRO 19:36 → 3ANU 20:37 → SUATTDRO 03-13 21:35
PROVIDERS: ADMIT Family Medicine; ATTEND Hospitalist

== ENCOUNTER 2021-03-29 12:03 | Inpatient (IN) ==
[2021-03-29] MEDS ORDERED: Naloxone 0.4 MG/ML INJ IVP PRN (16:05)
[2021-03-29] MEDS ORDERED: Ondansetron 4 MG/2 ML VIAL IVP PRN (16:05)
[2021-03-29] MEDS ORDERED: Calcium Gluconate 1gm/50mL 1 GM/50 ML BAG IVPB ONE (16:13)
[2021-03-29] MEDS ORDERED: SODIUM ZIRCONIUM CYCLOSILICATE 5 GM POWD.PACK PO SCH (16:15)
[2021-03-29] MEDS: Piperacillin/Tazobactam 3.375 GM in 0.9 % Sodium Chloride Mini Bag 100 ML IVPB SCH (17:35)
[2021-03-29] MEDS: Sodium Bicarbonate 150 MEQ in Water for inj. (sterile) 1,000 ML IVC SCH (18:45)
[2021-03-29 18:54] LABS: Basophils % 0.2 %; Hematocrit 24.5 % (37.5-50.1); Hemoglobin 7.8 g/dL (12.9-16.9); Immature Granulocytes % 1.7 % (0-4); Lymphocytes # 0.7 K/mcL (0.6-4.6); Lymphocytes % 4.2 %; Mean Corpuscular HGB Conc 31.8 g/dL (31.6-35.5); Mean Corpuscular Hemoglobin 28.9 pg (28.0-33.3); Mean Corpuscular Volume 90.7 fL (83.0-100.0); Mean Platelet Volume 10.7 fL (9.4-12.4); Monocytes # 0.8 K/mcL (0.0-1.3); Monocytes % 4.5 %; Neutrophils # 14.8 K/mcL (1.6-8.9); Platelet Count 215 K/mcL (140-400); Red Cell Distribution Width 16.4 % (11.5-14.5); Segmented Neutrophils % 89.4 %; White Blood Count 16.5 K/mcL (4.3-11.1)
[2021-03-29 19:28] LABS: Albumin 3.3 g/dL (3.5-5.7); Albumin/Globulin Ratio 1.6 (1.1-2.2); Bilirubin,Total 1.2 mg/dL (0.3-1.0); Calcium 8.3 mg/dL (8.6-10.3); Globulin 2.1 g/dL (2.4-3.5); Potassium 5.1 mEq/L (3.5-5.1); Total Protein 5.4 g/dL (6.4-8.9)
[2021-03-29] MEDS: Budesonide/Formoterol 160/4.5 1 PUFF INH IH SCH (19:57)
[2021-03-30] MEDS: Piperacillin/Tazobactam 3.375 GM in 0.9 % Sodium Chloride Mini Bag 100 ML IVPB SCH ×2 (03:43→17:33)
[2021-03-30] MEDS: Sodium Bicarbonate 150 MEQ in Water for inj. (sterile) 1,000 ML IVC SCH ×2 (06:26→17:54)
[2021-03-30] MEDS: Budesonide/Formoterol 160/4.5 1 PUFF INH IH SCH ×2 (08:18→20:57)
[2021-03-30] MEDS: Aspirin Enteric Coated 81 MG Tablet PO SCH (08:32)
[2021-03-30] MEDS: Calcium Acetate 667 MG CAPSULE PO SCH (08:32)
[2021-03-30] MEDS: Finasteride 5 MG TABLET PO SCH (08:32)
[2021-03-30] MEDS: Metoprolol XL (24 HR) Succ 50 MG TAB.ER.24H PO SCH (08:33)
[2021-03-30] MEDS: Iron Sucrose Complex 250 MG in 0.9 % Sodium Chloride 250 ML IVPB SCH (08:34)
[2021-03-30 11:25] LABS: Basophils % 0.1 %; Eosinophils # 0.1 K/mcL (0.0-0.6); Eosinophils % 0.5 %; Hematocrit 23.2 % (37.5-50.1); Hemoglobin 7.2 g/dL (12.9-16.9); Immature Granulocytes % 1.3 % (0-4); Lymphocytes % 7.4 %; Mean Corpuscular Volume 90.3 fL (83.0-100.0); Mean Platelet Volume 9.9 fL (9.4-12.4); Monocytes % 7.4 %; Neutrophils # 11.3 K/mcL (1.6-8.9); Platelet Count 208 K/mcL (140-400); Red Blood Count 2.57 M/mcL (4.19-5.50); Red Cell Distribution Width 16.2 % (11.5-14.5); Segmented Neutrophils % 83.3 %; White Blood Count 13.6 K/mcL (4.3-11.1)
[2021-03-30 11:29] LABS: INR 1.9; Prothrombin Time 21.4 Seconds (9.4-12.1)
[2021-03-30 12:49] LABS: Calcium 7.8 mg/dL (8.6-10.3); Magnesium 2.5 mg/dL (1.6-2.6); Phosphorous 3.7 mg/dL (2.7-4.5); Potassium 4.1 mEq/L (3.5-5.1)
[2021-03-30] MEDS: Roflumilast [Daliresp] 500 MCG Tablet PO SCH (15:09)
[2021-03-30 16:12] LABS: Bacteria,Urine Few per hpf (None-Few); Bilirubin,Urine Negative (Negative); Blood,Urine Small (Negative); Budding Yeast,Urine Few per hpf (None Seen); Clarity,Urine Clear (Clear); Color,Urine Yellow (Yellow); Glucose,Urine (UA) Normal (Normal); Ketones,Urine Negative (Negative); Leukocyte Esterase,Urine Large (Negative); Nitrite,Urine Negative (Negative); Protein,Urine Trace mg/dL (Neg-Trace); Specific Gravity,Urine 1.017 (1.010-1.025); WBC,Urine 50-100 per hpf (0-3)
[2021-03-30 16:50] LABS: Protein/Creatinine Ratio,Urine 0.44 mg/mg (0.00-0.20); Sodium, Urine 44.9 mEq/L
[2021-03-30] MEDS: Cholecalciferol (D-3) 1,000 UNIT (25MCG) TABLET PO SCH (17:33)
[2021-03-31 02:58] LABS: Hematocrit 20.6 % (37.5-50.1); Hemoglobin 6.5 g/dL (12.9-16.9); Mean Corpuscular HGB Conc 31.6 g/dL (31.6-35.5); Platelet Count 192 K/mcL (140-400); Red Blood Count 2.24 M/mcL (4.19-5.50); Red Cell Distribution Width 16.3 % (11.5-14.5); White Blood Count 10.4 K/mcL (4.3-11.1)
[2021-03-31 03:16] LABS: Uric Acid 8.1 mg/dL (2.3-7.6)
[2021-03-31 03:17] LABS: Calcium 7.6 mg/dL (8.6-10.3); Potassium 3.4 mEq/L (3.5-5.1)
[2021-03-31] MEDS: Piperacillin/Tazobactam 3.375 GM in 0.9 % Sodium Chloride Mini Bag 100 ML IVPB SCH ×2 (03:47→16:00)
[2021-03-31] MEDS: Sodium Bicarbonate 150 MEQ in Water for inj. (sterile) 1,000 ML IVC SCH (03:52)
[2021-03-31 03:56] LABS: Hepatitis B Surface Antigen Nonreactive (Nonreactive)
[2021-03-31 04:24] LABS: Hepatitis C Virus Antibody Nonreactive (Nonreactive)
[2021-03-31 04:25] LABS: Hepatitis B Core IgM Nonreactive (Nonreactive)
[2021-03-31 04:27] LABS: Hepatitis A Antibody IgM Nonreactive (Nonreactive)
[2021-03-31] MEDS: Budesonide/Formoterol 160/4.5 1 PUFF INH IH SCH ×2 (08:05→20:25)
[2021-03-31 08:24] LABS: Immature Reticulocyte % 32.8 % (11.0-38.0); Retculocyte # 0.09 M/mcL (0.05-0.10); Reticulocyte % 3.9 % (1.6-2.8)
[2021-03-31] MEDS: Calcium Acetate 667 MG CAPSULE PO SCH (08:25)
[2021-03-31] MEDS: Metoprolol XL (24 HR) Succ 50 MG TAB.ER.24H PO SCH (08:25)
[2021-03-31] MEDS: Aspirin Enteric Coated 81 MG Tablet PO SCH (08:25)
[2021-03-31] MEDS: Finasteride 5 MG TABLET PO SCH (08:25)
[2021-03-31] MEDS: Roflumilast [Daliresp] 500 MCG Tablet PO SCH (08:26)
[2021-03-31] MEDS: Iron Sucrose Complex 250 MG in 0.9 % Sodium Chloride 250 ML IVPB SCH (08:33)
[2021-03-31] MEDS ORDERED: 0.9 % Sodium Chloride 250 ML ONE (11:00)
[2021-03-31 17:37] LABS: Basophils % 0.1 %; Eosinophils # 0.1 K/mcL (0.0-0.6); Eosinophils % 0.8 %; Hematocrit 26.2 % (37.5-50.1); Immature Granulocytes % 0.8 % (0-4); Lymphocytes # 0.8 K/mcL (0.6-4.6); Lymphocytes % 7.2 %; Mean Corpuscular HGB Conc 30.5 g/dL (31.6-35.5); Mean Corpuscular Hemoglobin 28.2 pg (28.0-33.3); Mean Corpuscular Volume 92.3 fL (83.0-100.0); Mean Platelet Volume 9.9 fL (9.4-12.4); Monocytes # 0.7 K/mcL (0.0-1.3); Monocytes % 6.2 %; Neutrophils # 9.1 K/mcL (1.6-8.9); Platelet Count 196 K/mcL (140-400); Red Blood Count 2.84 M/mcL (4.19-5.50); Red Cell Distribution Width 16.4 % (11.5-14.5); Segmented Neutrophils % 84.9 %; White Blood Count 10.8 K/mcL (4.3-11.1)
[2021-04-01] MEDS: Piperacillin/Tazobactam 3.375 GM in 0.9 % Sodium Chloride Mini Bag 100 ML IVPB SCH ×3 (03:43→20:41)
[2021-04-01 05:50] LABS: Hematocrit 24.5 % (37.5-50.1); Hemoglobin 7.8 g/dL (12.9-16.9); Mean Corpuscular HGB Conc 31.8 g/dL (31.6-35.5); Mean Corpuscular Hemoglobin 29.7 pg (28.0-33.3); Mean Corpuscular Volume 93.2 fL (83.0-100.0); Mean Platelet Volume 10.3 fL (9.4-12.4); Platelet Count 213 K/mcL (140-400); Red Blood Count 2.63 M/mcL (4.19-5.50); Red Cell Distribution Width 16.6 % (11.5-14.5); White Blood Count 9.5 K/mcL (4.3-11.1)
[2021-04-01 05:59] LABS: Albumin 2.6 g/dL (3.5-5.7); Albumin/Globulin Ratio 1.3 (1.1-2.2); Bilirubin,Direct 0.2 mg/dL (0.0-0.2); Bilirubin,Indirect 0.8 mg/dL (0.0-1.0); Total Protein 4.6 g/dL (6.4-8.9)
[2021-04-01 06:28] LABS: BUN/Creatinine Ratio 16 (6-26); Blood Urea Nitrogen 17 mg/dL (8-23); Calcium 7.7 mg/dL (8.6-10.3); Carbon Dioxide 37 mEq/L (23-29); Chloride 96 mEq/L (98-107); Glucose 116 mg/dL (70-105); Osmolality,Calculated 289 (280-300); Potassium 3.6 mEq/L (3.5-5.1); Sodium 138 mEq/L (136-145); eGFR For African Americans > 60 (> 60); eGFR For Non-African Americans > 60 (> 60)
[2021-04-01] MEDS: Finasteride 5 MG TABLET PO SCH (08:03)
[2021-04-01] MEDS: Aspirin Enteric Coated 81 MG Tablet PO SCH (08:03)
[2021-04-01] MEDS: Metoprolol XL (24 HR) Succ 50 MG TAB.ER.24H PO SCH (08:03)
[2021-04-01] MEDS: Calcium Acetate 667 MG CAPSULE PO SCH (08:04)
[2021-04-01] MEDS: Roflumilast [Daliresp] 500 MCG Tablet PO SCH (08:06)
[2021-04-01] MEDS: Iron Sucrose Complex 250 MG in 0.9 % Sodium Chloride 250 ML IVPB SCH (10:09)
[2021-04-01] MEDS: Budesonide/Formoterol 160/4.5 1 PUFF INH IH SCH ×2 (11:09→20:57)
[2021-04-01] MEDS ORDERED: Iron Sucrose Complex 200 MG in 0.9 % Sodium Chloride 100 ML IVPB ONE (13:33)
[2021-04-02] MEDS: Piperacillin/Tazobactam 3.375 GM in 0.9 % Sodium Chloride Mini Bag 100 ML IVPB SCH ×3 (03:59→19:56)
[2021-04-02 06:29] LABS: Basophils % 0.3 %; Eosinophils # 0.2 K/mcL (0.0-0.6); Eosinophils % 1.7 %; Hematocrit 26.2 % (37.5-50.1); Hemoglobin 8.2 g/dL (12.9-16.9); Immature Granulocytes % 1.8 % (0-4); Lymphocytes # 0.8 K/mcL (0.6-4.6); Lymphocytes % 8.3 %; Mean Corpuscular HGB Conc 31.3 g/dL (31.6-35.5); Mean Corpuscular Hemoglobin 29.6 pg (28.0-33.3); Mean Corpuscular Volume 94.6 fL (83.0-100.0); Mean Platelet Volume 9.6 fL (9.4-12.4); Monocytes # 0.8 K/mcL (0.0-1.3); Monocytes % 8.5 %; Neutrophils # 7.5 K/mcL (1.6-8.9); Platelet Count 236 K/mcL (140-400); Red Blood Count 2.77 M/mcL (4.19-5.50); Red Cell Distribution Width 16.2 % (11.5-14.5); Segmented Neutrophils % 79.4 %; White Blood Count 9.5 K/mcL (4.3-11.1)
[2021-04-02 06:44] LABS: BUN/Creatinine Ratio 15 (6-26); Blood Urea Nitrogen 13 mg/dL (8-23); Calcium 8.1 mg/dL (8.6-10.3); Carbon Dioxide 36 mEq/L (23-29); Chloride 98 mEq/L (98-107); Glucose 112 mg/dL (70-105); Lactate Dehydrogenase 331 Units/L (140-271); Magnesium 2.2 mg/dL (1.6-2.6); Osmolality,Calculated 285 (280-300); Phosphorous 1.8 mg/dL (2.7-4.5); Potassium 3.7 mEq/L (3.5-5.1); Sodium 137 mEq/L (136-145); eGFR For African Americans > 60 (> 60); eGFR For Non-African Americans > 60 (> 60)
[2021-04-02] MEDS: Finasteride 5 MG TABLET PO SCH (08:20)
[2021-04-02] MEDS: Aspirin Enteric Coated 81 MG Tablet PO SCH (08:21)
[2021-04-02] MEDS: Metoprolol XL (24 HR) Succ 50 MG TAB.ER.24H PO SCH (08:22)
[2021-04-02] MEDS: Fluconazole 100 MG TABLET PO SCH (08:23)
[2021-04-02 08:52] LABS: C-Reactive Protein 82 mg/L (Less than 10)
[2021-04-02] MEDS: Furosemide 40 MG/4 ML VIAL IVP SCH ×2 (09:49→17:30)
[2021-04-02] MEDS: metOLazone 2.5 MG TABLET PO SCH (09:49)
[2021-04-02] MEDS: Budesonide/Formoterol 160/4.5 1 PUFF INH IH SCH ×2 (11:19→20:39)
[2021-04-02] MEDS: Cholecalciferol (D-3) 1,000 UNIT (25MCG) TABLET PO SCH (17:31)
[2021-04-02] MEDS ORDERED: Isovue-370 500 ML BOTTLE IVP ONE (19:34)
[2021-04-02 20:29] LABS: Hematocrit 28.6 % (37.5-50.1); Hemoglobin 8.8 g/dL (12.9-16.9)
[2021-04-03 02:11] LABS: Basophils % 0.2 %; Eosinophils # 0.1 K/mcL (0.0-0.6); Eosinophils % 1.3 %; Hematocrit 27.3 % (37.5-50.1); Hemoglobin 8.3 g/dL (12.9-16.9); Immature Granulocytes % 1.8 % (0-4); Lymphocytes # 0.9 K/mcL (0.6-4.6); Lymphocytes % 8.5 %; Mean Corpuscular HGB Conc 30.4 g/dL (31.6-35.5); Mean Corpuscular Hemoglobin 28.8 pg (28.0-33.3); Mean Corpuscular Volume 94.8 fL (83.0-100.0); Mean Platelet Volume 9.6 fL (9.4-12.4); Monocytes # 0.8 K/mcL (0.0-1.3); Neutrophils # 8.1 K/mcL (1.6-8.9); Platelet Count 269 K/mcL (140-400); Red Blood Count 2.88 M/mcL (4.19-5.50); Red Cell Distribution Width 16.7 % (11.5-14.5); Segmented Neutrophils % 80.2 %; White Blood Count 10.1 K/mcL (4.3-11.1)
[2021-04-03 02:21] LABS: INR 1.1
[2021-04-03 02:35] LABS: BUN/Creatinine Ratio 16 (6-26); Blood Urea Nitrogen 15 mg/dL (8-23); Calcium 8.2 mg/dL (8.6-10.3); Carbon Dioxide 32 mEq/L (23-29); Chloride 96 mEq/L (98-107); Glucose 140 mg/dL (70-105); Lactate Dehydrogenase 343 Units/L (140-271); Osmolality,Calculated 283 (280-300); Phosphorous 2.5 mg/dL (2.7-4.5); Potassium 3.5 mEq/L (3.5-5.1); Sodium 135 mEq/L (136-145); eGFR For African Americans > 60 (> 60); eGFR For Non-African Americans > 60 (> 60)
[2021-04-03] MEDS: Piperacillin/Tazobactam 3.375 GM in 0.9 % Sodium Chloride Mini Bag 100 ML IVPB SCH ×3 (03:24→19:26)
[2021-04-03 06:16] LABS: Urine Collection Volume NOT PROVIDED mL
[2021-04-03 06:51] LABS: Hematocrit 26.8 % (37.5-50.1); Hemoglobin 8.2 g/dL (12.9-16.9)
[2021-04-03] MEDS: Budesonide/Formoterol 160/4.5 1 PUFF INH IH SCH ×2 (07:28→21:03)
[2021-04-03] MEDS: Albuterol 2.5 MG/3 ML NEBULIZER IH PRN ×2 (07:30→21:04)
[2021-04-03] MEDS: Furosemide 40 MG/4 ML VIAL IVP SCH (08:23)
[2021-04-03] MEDS: metOLazone 2.5 MG TABLET PO SCH (08:24)
[2021-04-03] MEDS: Metoprolol XL (24 HR) Succ 50 MG TAB.ER.24H PO SCH (08:24)
[2021-04-03] MEDS: Fluconazole 100 MG TABLET PO SCH (08:25)
[2021-04-03] MEDS: Finasteride 5 MG TABLET PO SCH (08:25)
[2021-04-03] MEDS: Aspirin Enteric Coated 81 MG Tablet PO SCH (08:25)
[2021-04-03] MEDS: Torsemide 20 MG TABLET PO SCH (09:30)
[2021-04-03 11:39] LABS: Lambda Qnt Free Light Chains 20.45 mg/L (5.71-26.30)
[2021-04-03 12:05] LABS: Kappa Qnt Free Light Chains 19.6 mg/L (3.30-19.40)
[2021-04-03 22:16] LABS: Hematocrit 28.4 % (37.5-50.1); Hemoglobin 8.3 g/dL (12.9-16.9)
[2021-04-04 02:38] LABS: Basophils % 0.2 %; Eosinophils # 0.1 K/mcL (0.0-0.6); Eosinophils % 1.1 %; Hematocrit 27.8 % (37.5-50.1); Hemoglobin 8.4 g/dL (12.9-16.9); Immature Granulocytes % 1.8 % (0-4); Lymphocytes % 9.9 %; Mean Corpuscular HGB Conc 30.2 g/dL (31.6-35.5); Mean Corpuscular Hemoglobin 28.5 pg (28.0-33.3); Mean Corpuscular Volume 94.2 fL (83.0-100.0); Mean Platelet Volume 9.5 fL (9.4-12.4); Monocytes # 0.9 K/mcL (0.0-1.3); Neutrophils # 7.5 K/mcL (1.6-8.9); Platelet Count 294 K/mcL (140-400); Red Blood Count 2.95 M/mcL (4.19-5.50); Red Cell Distribution Width 16.8 % (11.5-14.5); White Blood Count 9.6 K/mcL (4.3-11.1)
[2021-04-04 02:48] LABS: BUN/Creatinine Ratio 16 (6-26); Blood Urea Nitrogen 16 mg/dL (8-23); Calcium 8.5 mg/dL (8.6-10.3); Carbon Dioxide 39 mEq/L (23-29); Chloride 92 mEq/L (98-107); Glucose 124 mg/dL (70-105); Magnesium 1.7 mg/dL (1.6-2.6); Osmolality,Calculated 287 (280-300); Phosphorous 2.1 mg/dL (2.7-4.5); Potassium 3.2 mEq/L (3.5-5.1); Sodium 137 mEq/L (136-145); eGFR For African Americans > 60 (> 60); eGFR For Non-African Americans > 60 (> 60)
[2021-04-04] MEDS: Piperacillin/Tazobactam 3.375 GM in 0.9 % Sodium Chloride Mini Bag 100 ML IVPB SCH ×3 (04:36→19:36)
[2021-04-04 07:12] LABS: Immunoglobulin A 133 mg/dL (68-408); Immunoglobulin G 389 mg/dL (768-1632); Immunoglobulin M 107 mg/dL (35-263)
[2021-04-04] MEDS: Metoprolol XL (24 HR) Succ 50 MG TAB.ER.24H PO SCH (07:56)
[2021-04-04] MEDS: Fluconazole 100 MG TABLET PO SCH (07:56)
[2021-04-04] MEDS: Torsemide 20 MG TABLET PO SCH (07:56)
[2021-04-04] MEDS: Finasteride 5 MG TABLET PO SCH (07:57)
[2021-04-04] MEDS: Budesonide/Formoterol 160/4.5 1 PUFF INH IH SCH ×2 (07:59→20:45)
[2021-04-04] MEDS ORDERED: Potassium Chloride Elixir 20 MEQ/15 ML UDC PO ONE (09:00)
[2021-04-04] MEDS: Albuterol 2.5 MG/3 ML NEBULIZER IH PRN ×2 (14:29→20:44)
[2021-04-05 02:21] LABS: Basophils % 0.3 %; Eosinophils # 0.1 K/mcL (0.0-0.6); Eosinophils % 0.9 %; Hematocrit 27.5 % (37.5-50.1); Hemoglobin 8.7 g/dL (12.9-16.9); Immature Granulocytes % 1.6 % (0-4); Lymphocytes % 9.5 %; Mean Corpuscular HGB Conc 31.6 g/dL (31.6-35.5); Mean Corpuscular Hemoglobin 29.6 pg (28.0-33.3); Mean Corpuscular Volume 93.5 fL (83.0-100.0); Mean Platelet Volume 9.3 fL (9.4-12.4); Monocytes # 0.9 K/mcL (0.0-1.3); Monocytes % 8.8 %; Neutrophils # 8.2 K/mcL (1.6-8.9); Platelet Count 301 K/mcL (140-400); Red Blood Count 2.94 M/mcL (4.19-5.50); Red Cell Distribution Width 16.9 % (11.5-14.5); Segmented Neutrophils % 78.9 %; White Blood Count 10.4 K/mcL (4.3-11.1)
[2021-04-05 02:42] LABS: BUN/Creatinine Ratio 18 (6-26); Blood Urea Nitrogen 17 mg/dL (8-23); Calcium 8.6 mg/dL (8.6-10.3); Carbon Dioxide 34 mEq/L (23-29); Chloride 93 mEq/L (98-107); Glucose 103 mg/dL (70-105); Magnesium 1.7 mg/dL (1.6-2.6); Osmolality,Calculated 282 (280-300); Phosphorous 2.3 mg/dL (2.7-4.5); Potassium 3.4 mEq/L (3.5-5.1); Sodium 135 mEq/L (136-145); eGFR For African Americans > 60 (> 60); eGFR For Non-African Americans > 60 (> 60)
[2021-04-05 03:57] VITALS: O2SAT 99
[2021-04-05] MEDS: Piperacillin/Tazobactam 3.375 GM in 0.9 % Sodium Chloride Mini Bag 100 ML IVPB SCH (04:50)
[2021-04-05] MEDS: Budesonide/Formoterol 160/4.5 1 PUFF INH IH SCH (07:36)
[2021-04-05 07:37] VITALS: BP 142/61; PULSE 91; TEMP 98
[2021-04-05] MEDS: Albuterol 2.5 MG/3 ML NEBULIZER IH PRN (07:40)
[2021-04-05] MEDS: Metoprolol XL (24 HR) Succ 50 MG TAB.ER.24H PO SCH (07:50)
[2021-04-05] MEDS: Fluconazole 100 MG TABLET PO SCH (07:50)
[2021-04-05] MEDS: Finasteride 5 MG TABLET PO SCH (07:50)
[2021-04-05] MEDS: Torsemide 20 MG TABLET PO SCH (07:50)
[2021-04-05 10:36] LABS: Influenza A PCR Negative (Negative); Influenza B PCR Negative (Negative); Resp. Syncytial Virus PCR Negative (Negative)
[2021-04-05 10:37] LABS: SARS-CoV-2 by PCR (In House) Negative (Negative)
[2021-04-05 17:49] LABS: Beta Globulin (PEP) 0.46 g/dL (0.48-1.10)
[2021-04-05 19:47] LABS: Urine Collection Volume NOT PROVIDED mL
[2021-04-06 13:06] LABS: IFE Reflexed IFE Done; Immunoglobulin A 124 mg/dL (68-408); Immunoglobulin G 369 mg/dL (768-1632); Immunoglobulin M 103 mg/dL (35-263)
== END 2021-04-05 11:18 | DRG 698 ==
LOC: 2ANU → SUATTDRO 15:42 → OBSVTOIN 15:42
PROVIDERS: ADMIT Pharmacist; ATTEND Internal Medicine